=== PATIENT | female | born 1960 | race Caucasian/White ===

== ENCOUNTER 2023-11-01 11:26 | Outpatient (CLI) | payer BC, SELFPAY ==
--- NOTE | ~2023-11-01 | MR_ITS ---
EXAMINATION: MR wrist LT wo con DATE: 11/01/2023 12:25 INDICATION: Left wrist pain TECHNIQUE: Magnetic resonance imaging (MRI) of the left wrist was performed without intravenous contr ast. Sequences performed include axial PD-weighted FSE and PD-weighted FS FSE, coronal PD-weighted FS FSE and T1-weighted SE, and sagittal PD-weighted FS FSE and PD-weighted FSE. COMPARISON: None FINDINGS: Intrinsic ligaments: Mild increased signal at the dorsal, volar and central membranous components of the scapholunate liga ment consistent with partial tears. There is increased lunocapitate angle of 37 degrees and a mildly increased scapholunate angle of 75 degrees consistent with secondary dorsal intercalated segment inst ability (DISI). The lunotriquetral ligament is normal. Triangular fibrocartilage complex (TFCC): Complex tear of the triangular fibrocartilage complex including the central fibrocartilaginous disc a nd the dorsal radioulnar ligaments. 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 The ulnotriquetral l igament is normal. There is a tear of the extensor carpi ulnaris tendon sheath allowing ulnar subluxa tion of the tendon across the ulnar rim of the ECU groove. Extensor wrist: Mild tenosynovitis with severe tendinopathy and both longitudinal split tearing and partial thickness tearing of the extensor carpi ulnaris tendon centered at level of the fractured tip of the ulnar sty loid process. Mild tendinopathy without discrete tear of the abductor pollicis longus and extensor po llicis brevis tendons. The remaining extensor tendons of the wrist are normal. Flexor wrist: The flexor tendons of the wrist are normal. No abnormality in the carpal tunnel with normal median n erve. Guyon's canal: Guyon's canal including the ulnar nerve and artery are normal. Bones/other: No fractures at the previously noted chronic nonunited ulnar styloid avulsion fracture. There is fausto re osteoarthritis at the distal radioulnar joint with full-thickness cartilage loss and remodeling of the articular cortex at the dorsal aspect of the radial articular surface and more diffusely about t he distal head of the ulna. The contour of the remodeling suggests increased motion at the distal rad ioulnar joint with transient dorsal subluxation of the ulna. There is associated subarticular edema-l yadira signal change at both sides of the joint space. Moderate osteoarthritis at the first carpometacar pal joint with prominent marginal osteophytes and mild subarticular edema-like and cystlike changes. Mild osteoarthritis at the midcarpal joint with deep partial thickness cartilage loss and underlying subarticular edema-like signal change along the volar articular surface of the lunate. Additional mil d osteoarthritis at the radiocarpal, triscaphe and second carpal metacarpal joints. Separate from the joint spaces and 8 x 3.5 x 3 mm intramedullary cyst at the proximal metaphysis of the first metacarp al. IMPRESSION: 1. At least partial tears of all 3 components of the scapholunate ligament with secondary dorsal inte rcalated segment instability (DISI). 2. Complex tear of the triangular fibrocartilage complex involving the central fiber cartilaginous di sc as well as the dorsal and volar radial ulnar ligaments and with chronic nonunited ulnar styloid av ulsion fracture fragment which it remains attached. 3. Tear of the extensor carpi ulnaris tendon sheath at the ECU groove allowing partial subluxation of the tendon across the ulnar rim of the groove. There is associated moderate tenosynovitis, moderate tendinopathy and longitudinal split tearing and partial-thickness tearing of the extensor carpi ulnar is tendon. 4. Mild tendinopathy without tears of the extensor pollicis brevis and abductor pollicis longus tendo ns in the first tarsal compartment. 5.
== END 2023-11-01 11:27 ==
PROVIDERS: Visit Provider Nurse Practitioner
DX: M25.332 Other instability, left wrist (principal); S63.592A Other specified sprain of left wrist, initial encounter; S66.812A Strain of other specified muscles, fascia and tendons at wrist and hand level, left hand, initial encounter; M19.032 Primary osteoarthritis, left wrist
CPT/HCPCS: 73221